=== PATIENT | male | born 1985 | race Caucasian/White ===

== ENCOUNTER 2020-05-31 20:59 | Emergency (ER) | payer BC ==
[~2020-05-31] VITALS: Ht 167.6 cm; Wt 81.6 kg
[2020-05-31 21:29] VITALS: BP 135/93
[2020-05-31 22:21] VITALS: BP 111/74
== END 2020-05-31 22:21 | disposition home or self-care (01) ==
LOC: MED 20:59
DX: F41.9 Anxiety disorder, unspecified (principal); R51 Headache; F12.10 Cannabis abuse, uncomplicated; J45.909 Unspecified asthma, uncomplicated
CPT/HCPCS: 93005; 99283

== ENCOUNTER 2020-06-01 12:49 | Emergency (ER) | payer BC ==
[~2020-06-01] VITALS: Ht 172.7 cm; Wt 90.7 kg
[2020-06-01 12:58] VITALS: BP 138/92
--- NOTE | 2020-06-01 13:00 | NUR ---
Pt placed in tent for covid precautions
--- NOTE | 2020-06-01 13:02 | NUR ---
35 y/o male from home c/o anxiety and SOB since yesterday. Was seen at [facility] yesterday evening for anxiety. Was given RX of Atarax and states it is not helping anxiety. RR even and unlabored, slightly tachypnic. Pt states "i cannot breathe and i want to lay in a ball on the floor". Pt sitting upright in wheelchair in tent. VSS medhx: anxiety, asthma
--- NOTE | 2020-06-01 13:49 | NUR ---
Dr Umana in tent examining pt
--- NOTE | 2020-06-01 13:57 | NUR ---
Pt moved to bed 08
--- NOTE | 2020-06-01 13:59 | NUR ---
X-Ray at bedside.
--- NOTE | 2020-06-01 14:17 | NUR ---
COVID SWAB OBTAINED AND SENT TO THE LAB.
[2020-06-01 14:43] VITALS: BP 128/88
--- NOTE | 2020-06-01 14:43 | NUR ---
Patient discharged with v/s stable. Written and verbal after care instructions given and explained. Patient alert, oriented and verbalized understanding of instructions. Ambulatory with steady gait. All questions addressed prior to discharge. ID band removed. Patient advised to follow up with PMD. Rx of Xanax 0.5mg given. Patient educated on indication of medication including possible reaction and side effects. Opportunity to ask questions provided and answered.
--- NOTE | 2020-06-03 10:57 | NUR ---
Covid results received from lab. Results = NOT DETECTED. Hard copy requested from lab and placed in infection controls mailbox.
== END 2020-06-01 14:43 | disposition home or self-care (01) ==
LOC: MED 12:49
DX: F41.9 Anxiety disorder, unspecified (principal); Z20.828 Contact with and (suspected) exposure to other viral communicable diseases; R03.0 Elevated blood-pressure reading, without diagnosis of hypertension; F17.290 Nicotine dependence, other tobacco product, uncomplicated; J45.909 Unspecified asthma, uncomplicated; F12.90 Cannabis use, unspecified, uncomplicated; Z71.6 Tobacco abuse counseling; Z88.1 Allergy status to other antibiotic agents
CPT/HCPCS: 71045; 93005; 99285; Q0092; U0003

== ENCOUNTER 2020-07-28 15:48 | Emergency (ER) | payer BC ==
[~2020-07-28] VITALS: Ht 170.2 cm; Wt 90.3 kg
[2020-07-28 15:57] VITALS: BP 125/87
--- NOTE | 2020-07-28 16:08 | NUR ---
PT AMB TO BED 11
--- NOTE | 2020-07-28 16:10 | NUR ---
35 year old male coming from home c/o left upper wall chest pain that radiates to left arm and feels numbness to the site x 1 week. states has hx of anxiety. and that everyday the pt is experiencing worsening chest pains. denies SOB/cough. +headache/blurry vision. +nausea/diarrhea. denies any other s/sx. denies any injury or trauma. awaiting MSE. pmhx: depression, anxiety allx: erythromycin
[2020-07-28] MEDS ORDERED: KETOROLAC 30 MG/ML VIAL IM ONE (16:30)
--- NOTE | 2020-07-28 16:30 | NUR ---
NORA Kowalski at bedside.
[2020-07-28 17:02] LABS: BASOPHILS # (AUTO) 0.1 K/uL (0.00-0.22); BASOPHILS % (AUTO) 1.2 % (0.0-2.0); EOSINOPHILS # (AUTO) 0.2 K/uL (0-0.4); EOSINOPHILS % (AUTO) 2.8 % (0.0-4.0); HEMATOCRIT 43.8 % (36-52); HEMOGLOBIN 15.4 g/dL (12.0-18.0); LYMPHOCYTES # (AUTO) 2.2 K/uL (2.0-11.5); LYMPHOCYTES % (AUTO) 25.5 % (20.5-51.1); MEAN CORPUSCULAR HEMOGLOBIN 30 pg (27-31); MEAN CORPUSCULAR HGB CONC 35 g/dL (33-37); MEAN CORPUSCULAR VOLUME 86.3 fL (80-94); MONOCYTES # (AUTO) 0.5 K/uL (0.8-1.0); MONOCYTES % (AUTO) 5.9 % (1.7-9.3); NEUTROPHILS # (AUTO) 5.7 K/uL (1.8-7.7); NEUTROPHILS % (AUTO) 64.6 % (42.2-75.2); PLATELET COUNT (AUTO) 242 K/uL (140-450); RED BLOOD CELL COUNT(AUTO) 5.08 MIL/uL (4.20-6.10); RED CELL DISTRIBUTION WIDTH 12.7 % (11.6-13.7); WHITE BLOOD COUNT (AUTO) 8.8 K/uL (4.8-10.8)
--- NOTE | 2020-07-28 17:12 | NUR ---
pt unable to provide urine. gave pt water.
[2020-07-28 17:22] LABS: ALBUMIN 4.2 g/dL (3.4-5.0); ANION GAP 15.6 (8-16); CARBON DIOXIDE 24.3 mmol/L (21-32); CREATININE 0.9 mg/dL (0.6-1.3); POTASSIUM 3.9 mmol/L (3.5-5.1); TOTAL BILIRUBIN 0.4 mg/dL (0.0-1.0)
[2020-07-28 17:23] VITALS: BP 125/75
[2020-07-28 17:46] LABS: APPEARANCE,URINE CLEAR (CLEAR); BILIRUBIN,URINE NEGATIVE (NEGATIVE); BLOOD, URINE NEGATIVE (NEGATIVE); COLOR,URINE YELLOW (YELLOW); LEUKOCYTE ESTERASE ,URINE NEGATIVE (NEGATIVE); NITRITE, URINE NEGATIVE (NEGATIVE); UGLUCOSE NEGATIVE (NEGATIVE)
[2020-07-28 18:28] LABS: BARBITURATE, URINE NEGATIVE ng/ml (NEG <=200); BENZODIAZEPINE, URINE NEGATIVE ng/mL (NEG <=200); CANNABINOID, URINE NEGATIVE ng/mL (NEG <=50); COCAINE, URINE NEGATIVE ng/mL (NEG <=300); OPIATE, URINE NEGATIVE ng/mL (NEG <=2000); PHENCYCLIDINE SCREEN,URINE NEGATIVE ng/mL (NEG <=25)
== END 2020-07-28 17:58 | disposition home or self-care (01) ==
LOC: MED 15:48
DX: F41.9 Anxiety disorder, unspecified (principal); R51.9 Headache, unspecified; R07.9 Chest pain, unspecified; J45.909 Unspecified asthma, uncomplicated; Z88.1 Allergy status to other antibiotic agents
CPT/HCPCS: 36415; 71045; 80053; 80305; 81003; 84484; 85025; 93005; 96372; 99285; J1885

== ENCOUNTER 2020-11-11 14:01 | Emergency (ER) | payer BC ==
[~2020-11-11] VITALS: Ht 170.2 cm; Wt 94.3 kg
[2020-11-11 14:09] VITALS: BP 136/81
[2020-11-11] MEDS ORDERED: KETOROLAC 30 MG/ML VIAL IM ONE (15:55)
[2020-11-11 16:46] VITALS: BP 109/78
== END 2020-11-11 16:46 | disposition home or self-care (01) ==
LOC: MED 14:01
DX: R07.89 Other chest pain (principal); F41.9 Anxiety disorder, unspecified; J45.909 Unspecified asthma, uncomplicated; Z88.1 Allergy status to other antibiotic agents
CPT/HCPCS: 93005; 96372; 99283; J1885